=== PATIENT | female | born 1955 | race Caucasian/White ===

== ENCOUNTER 2023-01-02 14:24 | Emergency (ER) | payer MEDICARE, OTHER, SELFPAY ==
--- NOTE | ~2023-01-02 | CT_ITS ---
Non-contrast Head CT History: Head injury Technique: Axial non-contrast imaging of the brain was performed. Dose reduction technique was used on this scan by utilizing automated exposure control and iterative reconstruction technique. The dose -length product (DLP) was 605.33 mGy-cm. Findings: There is no evidence of intracranial hemorrhage, mass lesion, or acute infarct. Brain par enchyma appears normal. The ventricles and subarachnoid spaces are normal in size. The calvarium ap pears normal. The visualized paranasal sinuses and mastoid air cells are clear. Impression: No significant abnormality seen. Reviewed, dictated and finalized at [facility]. Impression: No significant abnormality seen.
--- NOTE | ~2023-01-02 | CT_ITS ---
Noncontrast CT scan of the cervical spine Technique: Multiple contiguous axial [address] images of the cervical spine were obtained and rec onstructed in 2D sagittal and coronal planes on the acquisition scanner. Dose reduction technique was used on this scan by utilizing automated exposure control, adjustment of the mA and/or kV according to patient size. The dose-length product (DLP) was 200.51 mGy-cm. Clinical History: Pain Findings: No acute fracture identified. There is 5 mm anterolisthesis of C3 over C4. There is 4 mm an terolisthesis of C4 over C5. There is severe degenerative disc narrowing with associated uncovertebra l degenerative change at C5-C6 and C6-C7, and C7-T1. There is advanced left-sided facet arthropathy at C3-C4, left neural foraminal narrowing at this leve l. There is advanced right-sided facet arthropathy at C4-C5, with right neural foraminal narrowing at this level. There is mild left neural foraminal narrowing at C5-C6. There is mild bilateral neural f oraminal narrowing at C6-C7. There is probable mild canal stenosis at C5-C6 and C6-C7. No prevertebral soft tissue swelling. Impression: No acute fracture. 5 mm anterolisthesis of C3 over C4. 4 mm anterolisthesis of C4 over C5. Advanced degenerative spondylosis, as detailed above. Findings are worst at C3-C4, C4-C5, C5-C6, and C6-C7. Reviewed, dictated and finalized at [facility]. Impression: No acute fracture. 5 mm anterolisthesis of C3 over C4. 4 mm anterolisthesis of C4 over C5. Advanced degenerative spondylosis, as detailed above. Findings are worst at C3- C4, C4-C5, C5-C6, and C6-C7.
[2023-01-02 14:49] VITALS: BP 91/53; PULSE 86; TEMP 36.9; O2SAT 100
[2023-01-02 16:36] VITALS: BP 115/67; PULSE 96; RESP 24; O2SAT 99
--- NOTE | 2023-01-02 16:40 | ED.FALL ---
HPI - Fall General Chief Complaint: Fall <Usha Araiza, DESK OFFICER - Last Filed: 01/02/23 18:52> Stated Complaint: fall <Usha Araiza DESK OFFICER - Last Filed: 01/02/23 18:52> Time Seen by Provider: 01/02/23 16:23 <Usha Araiza DESK OFFICER - Last Filed: 01/02/23 18:52> History of Present Illness HPI Narrative: 67-year-old female presents to the emergency room today for evaluation after fall and hitting her head. She tripped and fell forward, hitting her head on the edge of a chair and landing on her right knee. She says that her right knee is little sore but seems to be fine. She has a laceration to her left forehead at the edge of her hairline and also reports a headache. No confusion or speech problems. No extremity weakness. No numbness or tingling. No loss of consciousness when she fell. <Usha Araiza, DESK OFFICER - Last Filed: 01/02/23 18:52> Related Data Home Medications: Home Medications Medication Instructions Recorded Confirmed venlafaxine 75 mg PO DAILY 01/02/23 01/02/23 <Usha Araiza, DESK OFFICER - Last Filed: 01/02/23 18:52> Allergies/Adverse Reactions: Allergies Allergy/AdvReac Type Severity Reaction Status Date / Time codeine Allergy Rash Verified 01/02/23 16:36 Penicillins Allergy Nausea and Verified 01/02/23 16:36 Vomiting Sulfa (Sulfonamide Allergy Nausea and Verified 01/02/23 16:36 Antibiotics) Vomiting Tetracyclines Allergy Nausea and Verified 01/02/23 16:36 Vomiting <Usha Araiza, DESK OFFICER - Last Filed: 01/02/23 18:52> Review of Systems Review of Systems: CONSTITUTIONAL: Denies fever, chills, or sweats. EYES: Denies visual changes, redness, or discharge. ENT: Denies rhinorrhea, congestion, sore throat, or otalgia. CARDIOVASCULAR: Denies chest pain, palpitations, or edema. RESPIRATORY: Denies cough or dyspnea. GASTROINTESTINAL: Denies abdominal pain, nausea, vomiting, or diarrhea. GENITOURINARY: Denies dysuria or hematuria. SKIN: As per HPI MUSCULOSKELETAL: Right knee mild pain NEUROLOGIC: reports headache, no numbness, dizziness, or weakness. PSYCHIATRIC: Denies anxiety or depression. <Usha Araiza APRN - Last Filed: 01/02/23 18:52> Exam Narrative: GENERAL: Well-appearing, well-nourished, and in no acute distress. HEAD: left forehead lac, 3cm, clean linear EYES: PERRL and EOMI. NECK: Supple. No adenopathy or masses. No carotid bruits or JVD CHEST: Clear to auscultation. No respiratory distress. No wheezes rales or rhonchi HEART: Regular rate and rhythm. No murmur heard. Normal peripheral pulses. ABDOMEN: Soft, nontender, nondistended, normal active bowel sounds. EXTREMITIES: Normal range of motion. No edema. SKIN: Warm, dry, no rash. NEURO: No focal deficits. Alert and oriented x3. PSYCH: Normal mood and affect. <Usha Araiza APRN - Last Filed: 01/02/23 18:52> Course LICENSED CLINICAL PSYCHOLOGIST/PA Physician Supervision This is a was performed by both a physician and an APC. I performed all aspects of the MDM as documented w/ the following additions: 67-year-old presenting with a fall and forehead laceration. Trauma Imaging was negative. santacruz components of all procedures performed under my supervision.All questions answered. Patient in agreement w/ disposition. <Lance Irving MD - Last Filed: 01/05/23 03:52> Vital Signs Vital signs: Vital Signs Temperature 98.5 F 01/02/23 14:49 Pulse Rate 86 01/02/23 14:49 Blood Pressure 91/53 L 01/02/23 14:49 Pulse Oximetry 100 01/02/23 14:49 Oxygen Delivery Room Air 01/02/23 14:49 Temperature 98.5 F 01/02/23 14:49 Pulse Rate 96 01/02/23 16:36 Respiratory Rate 24 H 01/02/23 16:36 Blood Pressure 115/67 01/02/23 16:36 Pulse Oximetry 99 01/02/23 16:36 Oxygen Delivery Room Air 01/02/23 14:49 <Usha Araiza APRN - Last Filed: 01/02/23 18:52> Vital Signs Temperature 98.5 F 01/02/23 14:49 Pulse Rate 86
[2023-01-02] MEDS: fentaNYL CITRATE INJ (*CRX) 100 MCG/2 ML VIAL 25 MCG IV PUSH (16:59)
[2023-01-02] MEDS: TETANUS,DIPHTHERIA,AC PERTUSSIS ADULT (0.5 ML) BOOSTRIX IM (17:00)
[2023-01-02] MEDS: ONDANSETRON INJ 4 MG/2 ML VIAL IV PUSH (17:01)
--- NOTE | 2023-01-02 17:01 | PC.NURSE ---
Pt to CT scan via stretcher at this time.
== END 2023-01-02 18:54 | disposition home or self-care (01) ==
PROVIDERS: Emergency Provider Nurse Practitioner Family
DX: S01.81XA Laceration without foreign body of other part of head, initial encounter (principal); Z23 Encounter for immunization; M47.812 Spondylosis without myelopathy or radiculopathy, cervical region; W01.190A Fall on same level from slipping, tripping and stumbling with subsequent striking against furniture, initial encounter
CPT/HCPCS: 12013; 70450; 72125; 90471; 90715; 96374; 96375; 99284; J2405; J3010